=== PATIENT | female | born 1945 | race Caucasian/White ===

== ENCOUNTER → 2016-09-27 | Outpatient (CLI) | payer MEDICARE, BC | END | disposition home or self-care (01) | LOC: LABWHC1 06:34 | PROVIDERS: ATTEND Family Medicine | DX: E83.52 Hypercalcemia (principal) | CPT/HCPCS: 36415; 82310; 83970 ==

== ENCOUNTER → 2016-10-28 | Outpatient (CLI) | payer MEDICARE, BC ==
--- NOTE | 2016-10-28 17:18 | US ---
EXAMINATION TYPE: US kidneys/renal and bladder DATE OF EXAM: 10/28/2016 COMPARISON: NONE CLINICAL HISTORY: R94.4 Abn Results Kidney Function. Elevated BUN/Creatine EXAM MEASUREMENTS: Right Kidney: 8.4 x 4.3 x 4.6 cm Left Kidney: 9.2 x 3.6 x 5.0 cm large body habitus and bowel gas limits exam, patient was very uncomfortable with bladder so unable to take time to assess jets Right Kidney: smaller in size Left Kidney: wnl Bladder: wnl Bilateral Jets seen: unable to assess, patient had to void There is no evidence for hydronephrosis at this point in time. No nephrolithiasis is seen. No florence s are identified. The urinary bladder is anechoic. Bilateral ureteral jets are seen. IMPRESSION: There is some cortical thinning in the right kidney consistent with atrophy. No hydronephrosis. Urina ry bladder is sonolucent. No evidence of a solid renal mass.
== END | disposition home or self-care (01) ==
LOC: RADUSWWP 16:15
PROVIDERS: ATTEND Family Medicine
DX: N28.89 Other specified disorders of kidney and ureter (principal)
CPT/HCPCS: 76770

== ENCOUNTER → 2016-12-16 | Outpatient (CLI) | payer MEDICARE, BC ==
[2016-12-16 12:27] LABS: Magnesium 1.7 mg/dL (1.6-2.3); Phosphorous 3.2 mg/dL (2.5-4.5); Uric Acid 9.6 mg/dL (3.7-7.4)
[2016-12-16 13:06] LABS: Basophils % (A) 1 %; CH 30.5; CHCM 32.2; Eosinophils # (A) 0.2 k/uL (0-0.7); Eosinophils % (A) 2 %; HCT 43.1 % (34.0-46.0); HDW 2.06; HGB 13.3 gm/dL (11.4-16.0); Luc # (Auto) 0.08; Luc % (Auto) 1; Lymphocytes # (A) 0.8 k/uL (1.0-4.8); Lymphocytes % (A) 11 %; MCH 29.4 pg (25.0-35.0); MCHC 30.9 g/dL (31.0-37.0); MCV 95.1 fL (80.0-100.0); Mean Platelet Volume 8.3; Monocytes # (A) 0.6 k/uL (0-1.0); Monocytes % (A) 9 %; Neutrophils # (A) 5.1 k/uL (1.3-7.7); Neutrophils % (A) 75 %; RBC 4.53 m/uL (3.80-5.40); RDW 14.3 % (11.5-15.5); WBC 6.8 k/uL (3.8-10.6); WBC (Perox) 6.82
--- NOTE | 2016-12-16 13:23 | ECHOF ---
Referral Reason:N18.3 Chronic kidney disease stage 3 MEASUREMENTS -------- HEIGHT: 127.0 cm WEIGHT: 108.0 kg BP: 139/62 RVIDd: 2.8 cm (< 3.3) IVSd: 1.3 cm (0.6 - 1.1) LVIDd: 3.3 cm (3.9 - 5.3) LVPWd: 1.2 cm (0.6 - 1.1) IVSs: 1.7 cm LVIDs: 2.0 cm LVPWs: 1.8 cm Ao Diam: 3.0 cm (2.0 - 3.7) AV Cusp: 2.1 cm (1.5 - 2.6) LA Diam: 3.7 cm (2.7 - 3.8) MV EXCURSION: 17.007 mm (> 18.000) MV EF SLOPE: 68 mm/s (70 - 150) EPSS: 0.4 cm MV E Paras: 0.80 m/s MV DecT: 240 ms MV A Paras: 0.81 m/s MV E/A Ratio: 0.99 FINDINGS -------- Sinus rhythm. This was a technically difficult study with suboptimal views. The left ventricular size is normal. There is mild concentric left ventricular hypertrophy. Overall left ventricular systolic function is normal with, an EF between 55 - 60 %. The right ventricle is normal in size and function. The left atrium is normal in size. The right atrium is normal in size. 1.5mg of Definity was utilized for enhancement of images The aortic valve is trileaflet, and appears structurally normal. No aortic stenosis or regurgitation. The mitral valve leaflets are mildly thickened. Mild mitral regurgitation is present. Mild tricuspid regurgitation present. The right ventricular systolic pressure, as measured by Doppler, is {RVSP}. Pulmonic valve appears structurally normal. The pericardium is normal. CONCLUSIONS -------- 1. Sinus rhythm. 2. The aortic valve is trileaflet, and appears structurally normal. No aortic stenosis or regurgitation. 3. The mitral valve leaflets are mildly thickened. 4. Mild mitral regurgitation is present. 5. Mild tricuspid regurgitation present. 6. The right ventricular systolic pressure, as measured by Doppler, is {RVSP}. 7. Pulmonic valve appears structurally normal. 8. The pericardium is normal. 9. This was a technically difficult study with suboptimal views. 10. The left ventricular size is normal. 11. There is mild concentric left ventricular hypertrophy. 12. Overall left ventricular systolic function is normal with, an EF between 55 - 60 %. 13. The right ventricle is normal in size and function. 14. The left atrium is normal in size. 15. The right atrium is normal in size. 16. 1.5mg of Definity was utilized for enhancement of images STRAP SETTER: Gena Adkins RDCS
[2016-12-16 15:17] LABS: Iron Saturation 15.24 (12.00-45.00); Iron(FE) 48 ug/dL (50-170); Total Iron Binding Capacity 315 ug/dL (228-460)
== END | disposition home or self-care (01) ==
LOC: RADECHMAIN 11:11
PROVIDERS: ATTEND Internal Medicine Nephrology
DX: I08.1 Rheumatic disorders of both mitral and tricuspid valves (principal); N18.3 Chronic kidney disease, stage 3 (moderate); D64.9 Anemia, unspecified; E55.9 Vitamin D deficiency, unspecified; E21.3 Hyperparathyroidism, unspecified; M10.9 Gout, unspecified; N39.0 Urinary tract infection, site not specified
CPT/HCPCS: 80048; 82728; 83540; 83550; 83735; 84100; 84550; 85025; 84165; 82306; 83970; 36415; C8929; Q9957; 93306

== ENCOUNTER → 2018-06-28 | Outpatient (CLI) | payer MEDICARE, BC ==
--- NOTE | 2018-06-28 15:37 | CT ---
EXAMINATION TYPE: CT abdomen pelvis w con DATE OF EXAM: 06/28/2018 COMPARISON: None INDICATION: LLQ pain DLP: 1421 mGycm, Automated exposure control for dose reduction was used. CONTRAST: 100 mL of Isovue 300. Study performed with Oral Contrast TECHNIQUE: Axial images were obtained from above the diaphragm to the pubic rami in the axial plane a t 5 mm thick sections. Reconstructed images are reviewed on the computer in the coronal plane. FINDINGS: Limited CT sections are obtained the lung bases. The lung bases are clear. CT ABDOMEN: Liver: There is ae 1.1 cm cyst in the superior right lobe liver measuring 9 Hounsfield units. Spleen: Normal Pancreas: Head of pancreas is slightly hypodense in relation to the body and tail of the pancreas. In itial evaluation could be attempted with ultrasound. Consider additional evaluation with contrast MRI . Underlying neoplasm is not excluded. Adrenal glands: The adrenal glands are normal. Gallbladder: Surgically absent Kidneys: No masses are evident. No hydronephrosis is present. No cysts are present. Delayed images were obtained through the kidneys, which remain unremarkable. Aorta: Vascular calcification is within the aorta. Inferior vena cava: Normal. CT PELVIS: Loops of bowel within the abdomen and pelvis are normal. Diverticuli are within the sigmoid colon . No acute diverticulitis is evident. Appendix: Normal as visualized. Urinary bladder: Normal. Genitourinary structures: Uterus is unremarkable. Adnexal regions are clear. Osseous structures: No suspicious lytic or sclerotic lesions. IMPRESSIONS: 1. Diverticulosis without acute diverticulitis. 2. There is some hypodensity within the head of the pancreas compared to the body and tail. Ultrasoun d pancreas and/or MRI pancreas with contrast for additional evaluation is recommended A Yellow level critical message alert has been initiated for Tonio Ferguson Jr, DO via the [email or web address] Critical Results System on 06/28/2018 3:35 PM. This message alert has been sent to Tonio russo Jr, DO via the preferences provided by the clinician for the receipt of Radiology Critical Findings . Message ID [id number].
== END | disposition home or self-care (01) ==
LOC: RADCTMAIN 07:41
PROVIDERS: ATTEND Family Medicine
DX: K57.31 Diverticulosis of large intestine without perforation or abscess with bleeding (principal)
CPT/HCPCS: 82565; 84520; 74177; 36415; Q9967

== ENCOUNTER → 2018-07-19 | Outpatient (CLI) | payer MEDICARE, BC ==
--- NOTE | 2018-07-19 14:12 | MR ---
EXAMINATION TYPE: MR pancreas wo/w con DATE OF EXAM: 07/19/2018 COMPARISON: CT abdomen dated 06/28/2018 HISTORY: Abnormal CT CONTRAST: Standard multiplanar, multisequence MRI departmental protocol utilizing 10 mL intravenous Gadavist ga dolinium contrast. FINDINGS: The pancreatic duct is nondilated measuring 2 mm near the pancreatic head and neck and nearly nondisc ernible at the pancreatic head on coronal T2 nonfat sat imaging. The common bile duct is very mildly enlarged for the patient's age measuring 8 mm, however this is within normal limits for surgical abse nce of the gallbladder. Very trace intrahepatic biliary ductal dilatation/prominence is noted. No francis ling defect to suggest choledocholithiasis. The gallbladder is surgically absent. The spleen is within normal limits of size measuring 8.6 cm in craniocaudal dimension. There is evidence of hepatic steatosis as there is signal dropout within the liver diffusely on out o f phase imaging. There is a 2 mm light bulb bright nonenhancing cyst in the posterior right lobe of t he liver on T2 fat sat image 21. There is also a centrally T2 hyperintense nonenhancing hepatic cyst in segment 8 measuring 9 mm. T1 hyperintense and T2 hyperintense probable hemorrhagic cyst measures 7 mm in the right renal midpol e. There are bilateral subcentimeter nonenhancing renal cysts with no suspicious renal lesion nor hyd ronephrosis. On postcontrast series 701 image 244 there is a 9 mm peripherally enhancing lesion near the ampulla o f Vater raising suspicion for possible periampullary mass. No dilated large or small bowel. Subcutaneous tissues appear unremarkable. Very minimal atelectasis i s seen at the lung bases. No greater than 1 cm short axis lymph node within the abdomen or pelvis. IMPRESSION: 1. There is a 9 mm area of abnormal enhancement at the ampulla of Vater raising suspicion for a peria mpullary mass. Endoscopy is recommended. 2. No main pancreatic ductal dilatation or abnormal enhancement to suggest pancreatic mass. No peripa ncreatic fat stranding. 3. Hepatic cysts and renal cysts, one of which appears hemorrhagic. 4. Hepatic steatosis.
== END | disposition home or self-care (01) ==
LOC: RADMRIMAIN 11:59
PROVIDERS: ATTEND Family Medicine
DX: N28.1 Cyst of kidney, acquired (principal); K76.89 Other specified diseases of liver; K76.0 Fatty (change of) liver, not elsewhere classified
CPT/HCPCS: 74183; A9585

== ENCOUNTER → 2023-12-07 | Outpatient (CLI) | payer MEDICARE, BC ==
--- NOTE | 2023-12-07 13:57 | XR ---
EXAMINATION TYPE: XR hand complete RT DATE OF EXAM: 12/07/2023 CLINICAL HISTORY: pain TECHNIQUE: Frontal, lateral and oblique images of the right hand are obtained. COMPARISON: None. FINDINGS: There is no acute fracture/dislocation evident. The joint spaces appear within normal limi ts. The overlying soft tissue appears unremarkable. IMPRESSION: There is no acute fracture or dislocation ICD 10 NO FRACTURE, INITIAL EVALUATION [facility], , 12/07/2023 1:55 PM
--- NOTE | 2023-12-07 13:58 | XR ---
EXAMINATION TYPE: XR shoulder limited bilateral DATE OF EXAM: 12/07/2023 CLINICAL HISTORY: [id number] TECHNIQUE: Three views of the bilateral shoulders COMPARISON: None. FINDINGS: There is no acute fracture/dislocation evident in the bilateral shoulders. The acromiocla vicular and glenohumeral joint spaces appear within normal limits. The visualized ribs are intact an d unremarkable. IMPRESSION: There is no acute fracture or dislocation in the bilateral shoulders. [facility], , 12/07/2023 1:56 PM
== END | disposition home or self-care (01) ==
LOC: RADXRYALE 13:28
PROVIDERS: ATTEND Internal Medicine
DX: M79.641 Pain in right hand (principal); M25.511 Pain in right shoulder; M25.512 Pain in left shoulder; Z91.81 History of falling